=== PATIENT | female | born 1985 | race Two or more races ===

== ENCOUNTER 2022-05-27 18:22 | Emergency (ER) | payer SELFPAY ==
[~2022-05-27] VITALS: Ht 170.2 cm; Wt 104.0 kg
[2022-05-27 18:25] VITALS: BP 175/101
== END 2022-05-27 20:53 | disposition left against medical advice (07) ==
LOC: ER 18:22
DX: Z53.21 Procedure and treatment not carried out due to patient leaving prior to being seen by health care provider (principal); I49.9 Cardiac arrhythmia, unspecified
CPT/HCPCS: 93005; 99281

== ENCOUNTER 2022-12-10 16:26 | Emergency (ER) | payer MEDICAID, MEDICARE ==
[~2022-12-10] VITALS: Ht 167.6 cm; Wt 81.0 kg
[2022-12-10 16:31] VITALS: BP 188/106; PULSE 103; RESP 20; TEMP 98.8; O2SAT 100
[2022-12-10] MEDS ORDERED: CLIN-116 MT (17:57)
== END 2022-12-10 18:11 | disposition home or self-care (01) ==
LOC: ER 16:26
DX: S80.861A Insect bite (nonvenomous), right lower leg, initial encounter (principal); I10 Essential (primary) hypertension; Z88.0 Allergy status to penicillin; Z98.890 Other specified postprocedural states; W57.XXXA Bitten or stung by nonvenomous insect and other nonvenomous arthropods, initial encounter; Y93.89 Activity, other specified; Y92.89 Other specified places as the place of occurrence of the external cause; Y99.8 Other external cause status
CPT/HCPCS: 99283

== ENCOUNTER 2024-06-26 16:53 | Emergency (ER) | payer BC, OTHER ==
[~2024-06-26] VITALS: Ht 167.6 cm; Wt 99.3 kg
[~2024-06-26 16:53] MED LIST: CLIN-116 MT
[2024-06-26 16:56] VITALS: BP 163/94; TEMP 36.7; O2SAT 100
[2024-06-26 16:59] VITALS: PULSE 89; RESP 20; O2SAT 98
[2024-06-26] MEDS ORDERED: IBUP-2028 MT (19:50)
[2024-06-26] MEDS ORDERED: CLIN-194 MT (19:50)
== END 2024-06-26 20:06 | disposition home or self-care (01) ==
LOC: ER 16:53
DX: L60.0 Ingrowing nail (principal); I10 Essential (primary) hypertension; Z98.890 Other specified postprocedural states; Z79.899 Other long term (current) drug therapy; Z88.0 Allergy status to penicillin
CPT/HCPCS: 99283